=== PATIENT | male | born 1995 | race African-American/Black ===

== ENCOUNTER 2019-11-08 02:36 | Emergency (ER) | payer MEDICAID ==
[~2019-11-08] VITALS: Ht 180.3 cm; Wt 72.6 kg
[2019-11-08 05:13] VITALS: BP 132/75
== END 2019-11-08 05:19 | disposition home or self-care (01) ==
LOC: ER 02:44
DX: S62.325A Displaced fracture of shaft of fourth metacarpal bone, left hand, initial encounter for closed fracture (principal); W22.01XA Walked into wall, initial encounter; Y93.89 Activity, other specified; Y92.89 Other specified places as the place of occurrence of the external cause; Y99.8 Other external cause status
CPT/HCPCS: 29125; 73130

== ENCOUNTER 2021-09-30 08:35 | Emergency (ER) | payer MEDICAID ==
[~2021-09-30] VITALS: Ht 185.4 cm; Wt 90.7 kg
[2021-09-30 09:35] VITALS: BP 134/93
[2021-09-30] MEDS ORDERED: cefTRIAXone SOD 1,000 MG VL IM ONE (09:45)
[2021-09-30] MEDS ORDERED: IBUPROFEN 800 MG TAB PO ONE (09:45)
[2021-09-30] MEDS ORDERED: LIDOCAINE 1% HCL (LOCAL ANESTH.) INJ 20ML MDV ONE (09:45)
[2021-09-30] MEDS ORDERED: IBUP800T27 PO (09:47)
[2021-09-30] MEDS ORDERED: CLIN300C8 PO (09:47)
== END 2021-09-30 09:57 | disposition home or self-care (01) ==
LOC: ER 08:35
DX: K02.9 Dental caries, unspecified (principal); F17.210 Nicotine dependence, cigarettes, uncomplicated; Z79.1 Long term (current) use of non-steroidal anti-inflammatories (NSAID); Z79.2 Long term (current) use of antibiotics
CPT/HCPCS: 96372; 99283; J0696; J2001

== ENCOUNTER 2022-10-02 14:41 | Emergency (ER) | payer MEDICAID ==
[~2022-10-02] VITALS: Ht 180.3 cm; Wt 96.5 kg
[~2022-10-02 14:41] MED LIST: CLIN300C8 PO; IBUP800T27 PO
[2022-10-02 15:14] VITALS: BP 142/90
== END 2022-10-02 16:52 | disposition left against medical advice (07) ==
LOC: ER 14:41
DX: R21 Rash and other nonspecific skin eruption (principal); Z53.21 Procedure and treatment not carried out due to patient leaving prior to being seen by health care provider

== ENCOUNTER 2023-09-30 13:48 | Emergency (ER) | payer MEDICAID ==
[~2023-09-30 13:48] MED LIST changes: +CLIN300C70 PO; -CLIN300C8 PO; +IBUP-1456 PO; -IBUP800T27 PO
[2023-09-30] MEDS ORDERED: IBUP-1455 PO (14:23)
[2023-09-30] MEDS ORDERED: CEPH250C PO (14:23)
[2023-09-30 14:39] VITALS: BP 136/87; PULSE 96; RESP 16; TEMP 98.4; O2SAT 99
== END 2023-09-30 14:41 | disposition home or self-care (01) ==
LOC: ER 13:48
DX: S30.863A Insect bite (nonvenomous) of scrotum and testes, initial encounter (principal); W57.XXXA Bitten or stung by nonvenomous insect and other nonvenomous arthropods, initial encounter; Y93.89 Activity, other specified; Y92.89 Other specified places as the place of occurrence of the external cause; Y99.8 Other external cause status

== ENCOUNTER 2024-02-01 18:20 | Emergency (ER) | payer MEDICAID ==
[~2024-02-01] VITALS: Ht 182.9 cm; Wt 102.6 kg
[~2024-02-01 18:20] MED LIST changes: +CEPH250C PO; +CLIN1CAP70 PO; -CLIN300C70 PO; +IBUP-1455 PO
[2024-02-01 19:09] LABS: Basophils # (auto) 0 10 ^3/uL (0-0.2); Basophils % (auto) 0.6 % (0.0-2.0); Eosinophils # (auto) 0.3 10 ^3/uL (0-0.8); Eosinophils % (auto) 5.1 % (0.0-7.0); Hematocrit 36.6 % (41.0-53.0); Hemoglobin 12.2 g/dL (13.5-17.5); Lymphocytes # (auto) 2.1 10 ^3/uL (0.4-5.4); Lymphocytes % (auto) 37.1 % (10.0-50.0); Mean Corpuscular Hemoglobin 30.3 pg (28.0-32.0); Mean Corpuscular Hgb Conc. 33.3 g/dL (32.0-36.0); Mean Corpuscular Volume 91.1 fL (80.0-100.0); Monocytes # (auto) 0.4 10 ^3/uL (0-1.3); Monocytes % (auto) 7.9 % (0.0-12.0); Neutrophils # (auto) 2.8 10 ^3/uL (1.6-8.6); Neutrophils % (auto) 49.3 % (37.0-80.0); Nucleated Red Blood Cells % 0.1 %; Red Blood Cells 4.02 10^6/uL (4.5-5.90); Red Cell Distribution Width 13.9 % (11.8-14.3); White Blood Cell 5.6 10^3/uL (4.4-10.8)
[2024-02-01 19:20] LABS: Urine Bacteria NONE SEEN /hpf (None Seen); Urine Blood Negative /uL (Negative); Urine Clarity Clear (Clear); Urine Color Yellow (Yellow); Urine Protein, UAD Negative (Negative); Urine Specific Gravity 1.013 (1.001-1.035); Urine Urobilinogen Normal (Negative); Urine WBC <1 /hpf (0 - 3)
[2024-02-01 19:20] LABS: Chloride 108 mmol/L (98-107); Potassium 3.9 mmol/L (3.5-5.1); Sodium 141 mmol/L (136-145)
[2024-02-01 19:21] LABS: Anion Gap 2 (5-15); Calcium 9.3 mg/dL (8.7-10.4); Carbon Dioxide 31 mmol/L (20-30)
[2024-02-01 19:26] LABS: BUN/Creatinine Ratio 9.2 (10.0-20.0); Blood Urea Nitrogen 11 mg/dL (9-23); Glucose 97 mg/dL (74-106)
[2024-02-01] MEDS ORDERED: NAPR-1335 PO (20:22)
[2024-02-01 20:30] VITALS: BP 157/89; PULSE 115; RESP 18; TEMP 98.2; O2SAT 99
== END 2024-02-01 20:30 | disposition home or self-care (01) ==
LOC: ER 18:20
DX: R10.9 Unspecified abdominal pain (principal); I10 Essential (primary) hypertension; F17.210 Nicotine dependence, cigarettes, uncomplicated
CPT/HCPCS: 36415; 74176; 80048; 81001; 85025

== ENCOUNTER 2024-02-20 16:07 | Emergency (ER) | payer MEDICAID ==
[~2024-02-20] VITALS: Ht 180.3 cm; Wt 102.8 kg
[~2024-02-20 16:07] MED LIST changes: -IBUP-1455 PO; -IBUP-1456 PO; +NAPR-1335 PO
[2024-02-20 16:18] VITALS: BP 137/96; PULSE 104; RESP 16; O2SAT 99
== END 2024-02-20 21:57 | disposition left against medical advice (07) ==
LOC: ER 16:07
DX: R51.9 Headache, unspecified (principal); Z53.21 Procedure and treatment not carried out due to patient leaving prior to being seen by health care provider

== ENCOUNTER 2025-08-23 22:00 | Emergency (ER) | payer MEDICAID ==
[~2025-08-23] VITALS: Ht 180.3 cm; Wt 112.2 kg
[2025-08-23 22:23] LABS: Hematocrit 37.8 % (41.0-53.0); Hemoglobin 13.0 g/dL (13.5-17.5); Mean Corpuscular Hemoglobin 30.4 pg (28.0-32.0); Mean Corpuscular Volume 88.6 fL (80.0-100.0); Nucleated Red Blood Cells % 0.1 %
--- NOTE | 2025-08-23 22:25 | ED.PDOC ---
HPI Comments 33-year-old male presented to the ER with a chief complaint of chest pain. Patient reports experiencing chest pain for the past couple of hours, midline, substernal, sharp in nature, nonradiating, non exertional, exacerbates with deep breaths, associated with shortness of breaths on exertion, denies nausea/diaphoresis/palpitations/dizziness at this time. Also reports productive cough with phlegm which is whitish in color for the past 2 days. Reports low- grade fever and chills. He says that his daughter is currently sick and has fever and chills. Patient also reports myalgias. Past medical history: Hypertension not on medications Home medications: None Social history: Smokes cigarettes, drinks socially, denies drug use Patient seen and examined. Palpable chest tenderness on the left sternal border, otherwise sinus rhythm. Chief Complaint: Chest Pain Time Seen by MD: 22:03 Primary Care Provider: LILLIE Rodriguez Notes: Nurses Notes Allergies: Coded Allergies: NO KNOWN ALLERGIES (Unverified , 11/08/19) Home Meds Active Scripts Naproxen Sodium (Naproxen) 220 Mg Tab, 220 MG PO BID for 7 Days, #14 TAB Prov:ITA ARIZA MD 02/01/24 Cephalexin (KEFLEX CAPSULE) 250 Mg Cp, 1 CAP PO QID for 7 Days, #28 CAP Prov:SUJATA CHOWDHURY 09/30/23 Clindamycin Hcl (Clindamycin Hcl) 300 Mg Cap, 300 MG PO QID for 7 Days, #32 CAP Prov:KERRY JIMENES 09/30/21 Information Source: Patient Mode of Arrival: Ambulatory Past Medical History PAST MEDICAL HISTORY: Anxiety, Depression, HTN, Seizures Surgical History: Denies all surgeries Family History Family History: Reviewed,noncontributory to illness, No family hx of Cancer, No family hx of DM, No family hx of Heart saulo, No family hx of HTN, No family hx ofKidney saulo, No family hx of Liver saulo, No family hx of Lung saulo, No family hx of Stroke Social History Smoker: Cigarettes Alcohol: Denies ETOH Use Drugs: Denies Drug Use Lives In: Home Constitutional: reports: chills, fever, malaise EENTM: denies: blurred vision, double vision, ear bleeding, ear discharge, ear drainage, ear pain, ear ringing, eye pain, eye redness, hearing loss, mouth pain, mouth swelling, nasal discharge, nose bleeding, nose congestion, nose pain, photophobia, tearing, throat pain, throat swelling, voice changes, others Respiratory: reports: cough, SOB at rest, SOB with excertion Cardiovascular: reports: chest pain Gastrointestinal: denies: abdomen distended, abdominal pain, blood streaked bowels, constipated, diarrhea, dysphagia, difficulty swallowing, hematemesis, melena, nausea, poor appetite, poor fluid intake, rectal bleeding, rectal pain, vomiting, others Genitourinary: denies: burning, dysuria, flank pain, frequency, hematuria, incontinence, penile discharge, penile sore, pain, testicle pain, testicle swelling, urgency, others Neurological: denies: dizziness, fainting, headache, left sided numbness, left sided weakness, numbness, paresthesia, pre-existing deficit, right sided numbness, right sided weakness, seizure, speech problems, tingling, tremors, weakness, others Musculoskeletal: reports: muscle pain Integumetry: denies: bruises, change in color, change in hair/nails, dryness, laceration, lesions, lumps, rash, wounds, others Allergic/Immunocompromised: denies: Difficulty Healing, Frequent Infections, Hives, Itching, others Hematologic/Lymphatic: denies: anemia, blood clots, easy bleeding, easy bruising, swollen glands, others Endocrine: denies: excessive hunger, excessive sweating, excessive thirst, excessive urination, flushing, intolerance to cold, intolerance to heat, un explained weight gain, unexplained weight loss, others Psychiatric: denies: anxiety, bipolar disorder, depression, hopeless, panic disorder, schizophrenia, sleepless, suicidal, others Physical Exam General Appearance: No Apparent Distress, Normal HEENT: Pharyngeal Erythema Neck: NOT DONE Respiratory: Decreased Breath Sounds, No Accessory Muscle Use, No Respiratory Distress Cardiovascular: No Edema, Regular Rate/Rhythm Breast Exam: Deferred Gastrointestinal: No Organomegaly, Non Tender, No Pulsatile Mass, Normal Bowel Sounds, Soft Genitalia: Deferred Pelvic: Deferred Rectal: Deferred Extremities: No calf tenderness, Normal capillary refill, Normal inspection, Normal range of motion, Non-tender, No pedal edema Neurologic: Alert, NOT DONE Cerebellar Function: NOT DONE Reflexes: NOT DONE Skin: Dry Lymphatic: NOT DONE Was a procedure done? Was a procedure done?: No CP Differential Dx Differential Diagnosis: AV Block 2nd Degree, Heart Failure, Hyperthyroidism, UT Comment Pharyngitis/upper respiratory tract infection/influenza X-Ray, Labs, Meds, VS Vital Signs Date Time Temp Pulse Resp B/P (MAP) Pulse Ox O2 Delivery O2 Flow Rate FiO2 08/24/25 01:42 98.2 96 18 146/72 (96) 95 98.2 08/23/25 23:35 153/97 08/23/25 23:35 99.3 109 18 153/97 (115) 95 99.3 08/23/25 23:28 90 08/23/25 22:01 98.3 95 16 166/86 98 98.3 Lab Test 08/23/25 23:45 08/23/25 23:31 08/23/25 23:08 08/23/25 22:10 Range/Units Urine Color Light-yellow Yellow Urine Clarity Clear Clear Urine pH 6.5 5.0-9.0 Urine Specific [place] 1.005 1.001-1.035 Urine Protein Negative Negative Urine Ketones Negative Negative Urine Blood Negative Negative /uL Urine Nitrite Negative Negative Urine Bilirubin Negative Negative Urine Urobilinogen Normal Negative mg/dL Urine Leukocyte Esterase 1+ Negative /uL Urine RBC 1 0 - 3 /hpf Urine Microscopic WBC 17 H 0-3 /HPF Urine Squamous Epithelial Cells None seen <5 /hpf Urine Bacteria None seen None Seen /hpf Urine Glucose Normal Normal mg/dL Influenza Type A Antigen Negative Negative Influenza Type B Antigen Negative Negative SARS-CoV-2 Antigen (Rapid) Negative NEGATIVE Troponin I High Sensitivity 3 L < 3 L </=54 ng/L White Blood Count 8.4 4.4-10.8 10^3/uL Red Blood Count 4.27 L 4.5-5.90 10^6/uL Hemoglobin 13.0 L 13.5-17.5 g/dL Hematocrit 37.8 L 41.0-53.0 % Mean Corpuscular Volume 88.6 80.0-100.0 fL Mean Corpuscular Hemoglobin 30.4 28.0-32.0 pg Mean Corpuscular Hemoglobin Concent 34.3 32.0-36.0 g/dL Red Cell Distribution Width 13.2 11.8-14.3 % Platelet Count 187 140-450 10^3/uL Mean Platelet Volume 9.7 6.9-10.8 fL Neutrophils (%) (Auto) 63.9 37.0-80.0 % Lymphocytes (%) (Auto) 24.3 10.0-50.0 % Monocytes (%) (Auto) 7.9 0.0-12.0 % Eosinophils (%) (Auto) 3.2 0.0-7.0 % Basophils (%) (Auto) 0.7 0.0-2.0 % Neutrophils # (Auto) 5.4 1.6-8.6 10 ^3/uL Lymphocytes # (Auto) 2.0 0.4-5.4 10 ^3/uL Monocytes # (Auto) 0.7 0-1.3 10 ^3/uL Eosinophils # (Auto) 0.3 0-0.8 10 ^3/uL Basophils # (Auto) 0.1 0-0.2 10 ^3/uL Nucleated Red Blood Cells 0.1 % Sodium Level 144 136-145 mmol/L Potassium Level 3.2 L 3.5-5.1 mmol/L Chloride Level 111 H 98-107 mmol/L Carbon Dioxide Level 27 20-31 mmol/L Anion Gap 6 5-15 Blood Urea Nitrogen 7 L 9-23 mg/dL Creatinine 1.32 H 0.700-1.30 mg/dL Glomerular Filtration Rate Calc 74 >90 mL/min BUN/Creatinine Ratio 5.3 L 10.0-20.0 Serum Glucose 93 74-106 mg/dL Calcium Level 9.2 8.7-10.4 mg/dL Magnesium Level 1.8 1.6-2.6 mg/dL B-Type Natriuretic Peptide 19.41 0-100 pg/mL Thyroid Stimulating Hormone (TSH) 1.98 0.55-4.78 uIU/mL Current Medications Medications (Trade) Dose Ordered Sig/Mercedes Route Start Time Stop Time Status Last Admin Aspirin 325 mg ONCE ONCE PO 08/23/25 22:15 08/23/25 23:00 DC 08/23/25 23:33 Ibuprofen (Motrin Tablet) 600 mg ONCE ONCE PO 08/23/25 22:30 08/23/25 23:00 DC 08/23/25 23:33 Potassium Bicarbonate (Klor-Con/Ef) 50 meq ONCE ONCE PO 08/23/25 23:00 08/23/25 23:01 DC 08/23/25 23:32 Clonidine HCl (Catapres Tablet) 0.1 mg ONCE ONCE PO 08/23/25 23:00 08/23/25 23:01 DC 08/23/25 23:35 X-Ray, Labs, Meds, VS Comment Chest x-ray shows no acute disease Patient has MADHU, likely vasomotor mediated Negative COVID and influenza swab Images Reviewed?: Images reviewed and evaluated by me Time of 1ST Reevaluation: 02:00 Reevaluation 1ST: Improved (Feels better) Time of 2ND Reevaluation: 03:00 Reevaluation 2ND: Patient eloped Consultation: PCP Patient Education/Counseling: Diagnosis, Treatment Family Education/Counseling: No Family Present SEPSIS Sepsis Screen Date sepsis recognized/suspect: Aug 23, 2025 Time Sepsis recognized/suspect: 2202 Recent Procedure: No On Antibiotic Therapy: No Respiratory Rate >20: No Heart Rate >90: No Temp<36 C (96.8 F) or >38.3 C: No SBP <90 or MAP <65 mmHG: No New Acute Mental Status Change: No Is the patient on CPAP, BIPAP,: No Physician Orders Electrocardigram (08/23/25 23:05) Chest Xray 1 View (08/23/25 22:19) Vital Signs Date Time Temp Pulse Resp B/P (MAP) Pulse Ox O2 Delivery O2 Flow Rate FiO2 08/24/25 01:42 98.2 96 18 146/72 (96) 95 98.2 08/23/25 23:35 153/97 08/23/25 23:35 99.3 109 18 153/97 (115) 95 99.3 08/23/25 23:28 90 08/23/25 22:01 98.3 95 16 166/86 98 98.3 Laboratory Tests Test 08/23/25 22:10 White Blood Count 8.4 10^3/uL (4.4-10.8) Medications Medications Dose Ordered Sig/Mercedes Route Start Time Stop Time Status Last Admin Dose Admin Aspirin 325 mg ONCE ONCE PO 08/23/25 22:15 08/23/25 23:00 DC 08/23/25 23:33 Clonidine HCl 0.1 mg ONCE ONCE PO 08/23/25 23:00 08/23/25 23:01 DC 08/23/25 23:35 Ibuprofen 600 mg ONCE ONCE PO 08/23/25 22:30 08/23/25 23:00 DC 08/23/25 23:33 Potassium Bicarbonate 50 meq ONCE ONCE PO 08/23/25 23:00 08/23/25 23:01 DC 08/23/25 23:32 Departure 1 Departure Time of Disposition: 03:00 Impression: Primary Impression: Upper respiratory infection Additional Impressions: MADHU (acute kidney injury) Hypokalemia Disposition: LEFT AWOL/ELOPED Condition: Fair Discharged With: Self Comments Patient eloped during medical management and evaluation Critical Care Note Critical Care Time?: No Stability Stability form required: No Heart Score Heart Score: Heart Score Response (Comments) Value History Slightly Suspicious 0 EKG Normal 0 Age <45 0 Risk Factors No known risk factors 0 Troponin Normal limit 0 Total 0 APOLONIA MILLER RESIDENT Aug 23, 2025 22:25
[2025-08-23 22:34] LABS: Sodium 144 mmol/L (136-145)
[2025-08-23 22:35] LABS: Anion Gap 6 (5-15); Calcium 9.2 mg/dL (8.7-10.4); Carbon Dioxide 27 mmol/L (20-31)
[2025-08-23 22:39] LABS: Chloride 111 mmol/L (98-107); Potassium 3.2 mmol/L (3.5-5.1)
[2025-08-23 22:40] LABS: Glucose 93 mg/dL (74-106)
[2025-08-23 22:41] LABS: BUN/Creatinine Ratio 5.3 (10.0-20.0); Magnesium 1.8 mg/dL (1.6-2.6)
[2025-08-23 22:48] LABS: Blood Urea Nitrogen 7 mg/dL (9-23)
--- NOTE | 2025-08-23 23:18 | DVH ---
CHEST RADIOGRAPH Indication: sob Technique: Single frontal view of the chest was obtained COMPARISON: None FINDINGS: Lungs and pleural spaces are clear. Cardiac silhouette and kristin are within normal limits. Bones and s oft tissues demonstrate no significant abnormality. IMPRESSION: No acute disease.
[2025-08-23] MEDS: POTASSIUM EFFERVESENT TAB 25 MEQ PO ONE (23:32)
[2025-08-23] MEDS: IBUPROFEN 600 MG TAB PO ONE (23:33)
[2025-08-24 01:42] VITALS: BP 146/72; PULSE 96; RESP 18; TEMP 98.2; O2SAT 95
[2025-08-24 01:57] LABS: Urine Protein, UAD Negative (Negative)
[2025-08-24 02:38] LABS: COVID19 ANTIGEN SOFIA FIA NEGATIVE (NEGATIVE)
--- NOTE | 2025-08-24 03:07 | ECG ---
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
--- NOTE | 2025-08-24 03:08 | ECG ---
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
[2025-08-24] MEDS: SODIUM CHLORIDE 0.9% 1,000 ML IV ONE (06:34)
--- NOTE | 2025-08-25 09:40 | ECG ---
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
== END 2025-08-24 06:29 | disposition home or self-care (01) ==
LOC: ER 22:02
DX: I12.9 Hypertensive chronic kidney disease with stage 1 through stage 4 chronic kidney disease, or unspecified chronic kidney disease (principal); N18.9 Chronic kidney disease, unspecified; J06.9 Acute upper respiratory infection, unspecified; E87.6 Hypokalemia; F41.9 Anxiety disorder, unspecified; F32.A Depression, unspecified; F17.210 Nicotine dependence, cigarettes, uncomplicated; Z79.899 Other long term (current) drug therapy; Z20.822 Contact with and (suspected) exposure to COVID-19
CPT/HCPCS: 36415; 71045; 80048; 81001; 83735; 83880; 84443; 84484; 85025; 87426; 87804; 93005